=== PATIENT | male | born 1990 | race Caucasian/White ===

== ENCOUNTER 2018-09-05 18:59 | Emergency (ER) | payer MEDICAID, OTHER ==
[~2018-09-05] VITALS: Ht 167.6 cm; Wt 73.0 kg
[2018-09-05 19:14] VITALS: BP 120/66
== END 2018-09-05 21:40 | disposition left against medical advice (07) ==
LOC: ER 18:59
DX: M79.671 Pain in right foot (principal); Z53.21 Procedure and treatment not carried out due to patient leaving prior to being seen by health care provider